=== PATIENT | female | born 1950 | race Caucasian/White ===

== ENCOUNTER 2016-10-08 06:03 | Day surgery (SDC) | payer SELFPAY, BC ==
--- NOTE | ~2016-10-08 | EGD ---
EGD REPORT [facility] [address] [place] [address] NAME: TAMI SMILEY : [birth year] STATUS : REG [facility] [place] PAT#: [id number] AGE: 65 ADM/REG DATE : 10/08/16 MR#: [id number] REPORT SERV DATE: 10/08/16 DICTATED BY: YUNI FRAZIER DATE: 10/08/16 REPORT STATUS : Draft TRANSCRIBED BY: [facility] DATE: 10/08/16 Endoscopy Center Patient Name: Tami Smiley Date of : 1950 Attending MD: YUNI FRAZIER MD Procedure Date No Time: 10/08/2016 Procedure: Upper GI endoscopy Indications: Dysphagia, Heartburn, Suspected esophageal reflux, Gastroparesis Referring MD: VICKIE SINGH MD Medicines: as per anesthesia Complications: No immediate complications. Procedure: Pre-Anesthesia Assessment: - ASA Grade Assessment: III - A patient with severe systemic disease. After obtaining informed consent, the endoscope was passed under direct vision. Throughout the procedure, the patient's blood pressure, pulse, and oxygen saturations were monitored continuously. The GIF [id number] [id number] was introduced through the mouth, and advanced to the third part of duodenum. The upper GI endoscopy was accomplished without difficulty. The patient tolerated the procedure. Findings: The examined esophagus was normal. The scope was withdrawn. Dilation was performed with a Cuello dilator with no resistance at 44 Fr. The entire examined stomach was normal. The cardia and gastric fundus were normal on retroflexion. The examined duodenum was normal. Impression: - Normal esophagus. Dilated. - Normal stomach. - Normal examined duodenum. Recommendation: - Follow an antireflux regimen. - Continue present medications. Procedure Code(s): --- Professional --- 54152, Esophagogastroduodenoscopy, flexible, transoral; diagnostic, including collection of specimen(s) by brushing or washing, when performed (separate procedure) 51361, Dilation of esophagus, by unguided sound or bougie, single or multiple passes EGD REPORT [facility] [address] [facility] [place]. [address] NAME: TAMI SMILEY : [birth year] STATUS : REG [facility]#: [id number] AGE: 65 ADM/REG DATE : 10/08/16 MR#: [id number] REPORT SERV DATE: 10/08/16 DICTATED BY: YUNI FRAZIER. DATE: 10/08/16 REPORT STATUS : Draft TRANSCRIBED BY: [employer] DATE: 10/08/16 Diagnosis Code(s): --- Professional --- R13.10, Dysphagia, unspecified R12, Heartburn K31.84, Gastroparesis CPT copyright 2013 [employer]. All rights reserved. The codes documented in this report are preliminary and upon court usher review may be revised to meet current compliance requirements. YUNI FRAZIER MD 10/08/2016 7:49 AM This report has been signed electronically. Number of Addenda: 0 Note Initiated On: 10/08/2016 7:27 AM Scope Withdrawal Time 0 hours 0 minutes [address] [place] [address]
--- NOTE | ~2016-10-08 | EGD ---
EGD REPORT [facility] [address] [place] [address] NAME: TAMI SMILEY : [birth year] [place]US [place] [facility] [place]#: [id number] AGE: 65 ADM/REG DATE : 10/08/16 MR#: [id number] REPORT SERV DATE: 10/08/16 DICTATED BY: YUNI FRAZIER DATE: 10/08/16 REPORT STATUS : Draft TRANSCRIBED BY: [facility] DATE: 10/08/16 Endoscopy Center Patient Name: Tami Smiley Date of : 1950 Attending MD: YUNI FRAZIER MD Procedure Date No Time: 10/08/2016 Procedure: Colonoscopy Indications: High risk colon cancer surveillance: Personal history of colonic polyps, FH of Colonic Polyps - 1st degree relative Referring MD: VICKIE SINGH MD Medicines: as per anesthesia Complications: No immediate complications. Procedure: Pre-Anesthesia Assessment: - ASA Grade Assessment: III - A patient with severe systemic disease. After I obtained informed consent, the scope was passed under direct vision. Throughout the procedure, the patient's blood pressure, pulse, and oxygen saturations were monitored continuously. The [facility] [id number] was introduced through the anus and advanced to the cecum, identified by appendiceal orifice and ileocecal valve. The colonoscopy was somewhat difficult due to significant looping and a tortuous colon. The patient tolerated the procedure. The quality of the bowel preparation was adequate to identify polyps. Findings: The perianal and digital rectal examinations were normal. A sessile polyp was found in the transverse colon. The polyp was 4 mm in size. The polyp was removed with a cold biopsy forceps. Resection and retrieval were complete. Internal hemorrhoids were found during endoscopy and were mild. Impression: - One 4 mm polyp in the transverse colon. Resected and retrieved. - Internal hemorrhoids. Recommendation: - Await pathology results. - Repeat colonoscopy for surveillance based on pathology results. Procedure Code(s): --- Professional --- 31495, Colonoscopy, flexible, proximal to splenic flexure; with biopsy, single or multiple EGD REPORT [facility] [address] [place]. [address] NAME: TAMI SMILEY : [birth year] STATUS : REG [facility]#: [id number] AGE: 65 ADM/REG DATE : 10/08/16 MR#: [id number] REPORT SERV DATE: 10/08/16 DICTATED BY: YUNI FRAZIER DATE: 10/08/16 REPORT STATUS : Draft TRANSCRIBED BY: [employer] DATE: 10/08/16 Diagnosis Code(s): --- Professional --- D12.3, Benign neoplasm of transverse colon K64.8, Other hemorrhoids Z86.010, Personal history of colonic polyps Z83.71, Family history of colonic polyps CPT copyright 2013 [employer]. All rights reserved. The codes documented in this report are preliminary and upon railroad detective review may be revised to meet current compliance requirements. YUNI FRAZIER MD 10/08/2016 8:11 AM This report has been signed electronically. Number of Addenda: 0 Note Initiated On: 10/08/2016 7:46 AM Scope Withdrawal Time 0 hours 7 minutes 59 seconds [address] [place] [address]
[~2016-10-08 06:03] MED LIST: KAPIDEX30 MG PO; MIRALAX POWDER1 PKT PO; MULTIVIT/MIN PO; PRILO PO
== END 2016-10-08 23:59 | disposition home or self-care (01) ==
LOC: DMU 06:03
PROVIDERS: Internal Medicine Gastroenterology
PROC: 0DBL8ZZ Excision of Transverse Colon, Via Natural or Artificial Opening Endoscopic (ICD-10-PCS; principal; 2016-10-08 07:30)
PROC: 0D757ZZ Dilation of Esophagus, Via Natural or Artificial Opening (ICD-10-PCS; 2016-10-08 07:30)
DX: Z12.11 Encounter for screening for malignant neoplasm of colon (principal); D12.3 Benign neoplasm of transverse colon; R13.10 Dysphagia, unspecified; R12 Heartburn; K64.8 Other hemorrhoids; M19.90 Unspecified osteoarthritis, unspecified site; K31.84 Gastroparesis; H91.90 Unspecified hearing loss, unspecified ear; R00.2 Palpitations; M51.36 Other intervertebral disc degeneration, lumbar region; M50.30 Other cervical disc degeneration, unspecified cervical region; Z83.71 Family history of colonic polyps; Z90.710 Acquired absence of both cervix and uterus; Z90.49 Acquired absence of other specified parts of digestive tract; Z98.51 Tubal ligation status; Z98.890 Other specified postprocedural states; Z97.4 Presence of external hearing-aid; Z87.891 Personal history of nicotine dependence; Z79.899 Other long term (current) drug therapy
CPT/HCPCS: 88305

== ENCOUNTER 2016-11-21 10:49 | Emergency (ER) | payer BC ==
[2016-11-21 11:22] LABS: BASOPHILS 0.1 %; BASOPHILS ABSOLUTE 0.01 10/3/uL (0.0-0.16); EOSINOPHILS 1.4 %; HEMATOCRIT 42.5 % (36.0-48.0); HEMOGLOBIN 14.1 g/dL (12.0-16.0); IMMATURE GRANULOCYTES 0.1 %; IMMATURE GRANULOCYTES ABSOLUTE 0.01 10/3/uL (0.0-0.11); LYMPHOCYTES 23.9 %; LYMPHOCYTES ABSOLUTE 1.74 10/3/uL (0.67-4.30); MEAN CORPUS HGB CONC 33.2 g/dL (32.0-36.0); MEAN CORPUSCULAR HEMOGLOB 31.4 pg (26.0-34.0); MEAN CORPUSCULAR VOLUME 94.7 fL (80-100); MEAN PLATELET VOLUME 9.9 fL (9.2-13.0); MONOCYTES 9.6 %; NEUTROPHILS 64.9 %; NEUTROPHILS ABSOLUTE 4.72 10/3/uL (2.02-8.40); PLATELET COUNT 221 10/3/uL (150-400); RBC DISTRIBUTION WIDTH 12.2 % (12.0-16.0); RED CELL COUNT 4.49 10/6/uL (4.0-5.6)
[2016-11-21 11:24] LABS: ER CBC TAT 0 Hrs 05 Mins; MANUAL DIFF NO %; WHITE BLOOD CELLS 7.3 10/3/uL (4.5-10.5)
[2016-11-21 11:40] LABS: A/G RATIO 1.4 (0.7-1.9); ALBUMIN 3.9 G/DL (3.5-5.0); ALKALINE PHOSPHATASE 41 U/L (45-117); BUN (BLOOD UREA NITROGEN) 19 MG/DL (6-23); CALCIUM, SERUM 9.2 MG/DL (8.5-10.4); CHLORIDE, SERUM 107 MMOL/L (96-112); CO2 (CARBON DIOXIDE) 29 MMOL/L (24-34); CREATININE 0.83 MG/DL (0.55-1.02); GFR AFRICAN AMERICAN 86 ML/MIN (>=60); GFR NON AFRICAN AMERICAN 75 ML/MIN (>=60); GLOBULIN 2.8 G/DL (2.5-4.1); GLUCOSE, SERUM 164 MG/DL (60-99); POTASSIUM, SERUM 3.6 MMOL/L (3.5-5.3); SGOT(AST) 19 U/L (5-40); SGPT(ALT) 18 U/L (5-65); SODIUM, SERUM 144 MMOL/L (135-148); TOTAL BILIRUBIN 0.7 MG/DL (0-1.2); TOTAL PROTEIN 6.7 G/DL (6.0-8.5); TROPONIN I <0.02 NG/ML (<0.05)
== END 2016-11-21 12:39 | disposition home or self-care (01) ==
LOC: ER 10:49
PROVIDERS: Emergency Medicine
DX: R42 Dizziness and giddiness (principal); K21.9 Gastro-esophageal reflux disease without esophagitis; Z79.899 Other long term (current) drug therapy
CPT/HCPCS: 71010; 80053; 84484; 85025; 93005; 96374; 99284; A9270-GY; J2405